=== PATIENT | male | born 1940 | race Caucasian/White ===

== ENCOUNTER → 2024-02-21 08:55 | Outpatient (REF) | payer MEDICARE, SELFPAY | LOC: RAD 08:55 | PROVIDERS: ATTENDING PHYSICIAN Surgery Vascular Surgery; FAMILY PHYSICIAN Family Medicine | DX: I65.23 Occlusion and stenosis of bilateral carotid arteries (principal) | CPT/HCPCS: 93880 ==

== ENCOUNTER → 2024-09-14 08:18 | Outpatient (REF) | payer MEDICARE, SELFPAY | LOC: DHVS 08:18 | PROVIDERS: ATTENDING PHYSICIAN Surgery Vascular Surgery; FAMILY PHYSICIAN Family Medicine; REFERRING PHYSICIAN Internal Medicine Interventional Cardiology | DX: I65.23 Occlusion and stenosis of bilateral carotid arteries (principal) | CPT/HCPCS: 93880 ==

== ENCOUNTER → 2025-02-22 09:20 | Outpatient (REF) | payer MEDICARE, SELFPAY | LOC: DHVS 09:20 | PROVIDERS: ATTENDING PHYSICIAN Registered Nurse; FAMILY PHYSICIAN Family Medicine | DX: I65.23 Occlusion and stenosis of bilateral carotid arteries (principal) | CPT/HCPCS: 93880 ==

== ENCOUNTER → 2025-08-19 08:52 | Outpatient (REF) | payer MEDICARE, SELFPAY | LOC: RAD 08:52 | PROVIDERS: ATTENDING PHYSICIAN Registered Nurse; FAMILY PHYSICIAN Family Medicine | DX: I65.23 Occlusion and stenosis of bilateral carotid arteries (principal) | CPT/HCPCS: 93880 ==

== ENCOUNTER 2025-09-08 11:07 | Emergency (ER) | payer MEDICARE, SELFPAY ==
[2025-09-08 11:13] VITALS: BP 165/58
--- NOTE | 2025-09-08 12:12 | ED.GENMED ---
History of Present Illness
General
Chief Complaint: Throat Problem
Source: patient
Exam Limitations: none
Time Seen by Provider: 09/08/25 12:08
Nursing documentation reviewed up to this point in time: agreed with
History of Present Illness
History of Present Illness:
Patient is an 84-year-old male past with a history of reflux hypertension hyperlipidemia diabetes carotid enterectomy presents to the ER for evaluation of left-sided neck pain. Patient was in bed last night and rolled and feltpain in his left neck.
Patient has had progressively worsening left-sided neck pain since. he has not taken any for pain. He denies any associated chest pain shortness of breath. Denies any headache visual disturbances . Denies any radiation of pain. Denies any
numbness tingling weakness in extremities. No other recent trauma.
Past History
Past History
ED Past Medical History: GERD and NIDDM
ED Past Surgical History: Orthopedic
Social History
Tobacco: Former smoker
Alcohol: Occasional
Drug: None
Personal:
Living: with family
Phy Exam
General Physical Exam
General Presentation: no apparent distress
General age: appears stated age
General Skin: warm and dry
General Habitus: normal
General Mental: alert
General Hydration: appears well hydrated
Cardiovascular Exam
Cardiovascular Exam: regular rate/rhythm, no murmur and normal peripheral pulses
Pulmonary Exam
Pulmonary Exam: lungs clear and no respiratory distress
Neurological Exam
Neurological Exam: alert and oriented x3
Musculoskeletal Exam
Musculoskeletal Exam: other (point tender to left lateral neck region ; pain with ROM ; nml distal strength b/l intact sensation distally )
Skin Exam
Skin Exam: normal color and warm/dry
Psychiatric Exam
Psychiatric Exam: normal mood/affect
Course
Orders/Labs/Results
Orders:
Orders
09/08/25 11:08
EKG [Electrocardiogram (*1)] Urgent
Reason for Study: Chest Pain
EKG- Treatment ONCE
09/08/25 12:34
Acetaminophen [Tylenol] 1,000 mg PO NOW STA
Lidocaine [Lidocaine 4% Patch] 1 patch TOPICAL NOW STA
Apply Lidocaine patch(s) to:: left neck
diazePAM [Valium Injection] 5 mg IM NOW STA
Vital Signs
Initial and Last Documented VS:
Initial Vital Signs
Temp Pulse Resp BP Pulse Ox
97.3 F 97 16 165/58 97
09/08/25 11:13 09/08/25 11:13 09/08/25 11:13 09/08/25 11:13 09/08/25 11:13
Last Documented Vital Signs
Temp Pulse Resp BP Pulse Ox
97.3 F 97 16 165/58 97
09/08/25 11:13 09/08/25 11:13 09/08/25 11:13 09/08/25 11:13 09/08/25 12:12
MDM/Problems Addressed
Differential Diagnosis Includes:
Not limited to muscle sprain strain, torticollis
MDM/Problems Addressed:
Symptoms are consistent with torticollis. No concerning symptoms patient has no other complaints. Patient received a small dose of Valium here with Tylenol and lidocaine patch feeling much better. Will DC home with Tylenol warm compresses
discussion with family we will hold off on Valium at this time as patient is 84 years old and it is very sedating .hopefully with the relief he had here he will continue to do well with heat and Tylenol and lidocaine patch. Discussed close
outpatient follow-up family physician may need outpatient physical therapy.
*Pulse Oximetry
SaO2: 97
Oxygen Mode of Delivery: Room air
Patient hypoxic: no
*Critical Care Note
Total Time (30-74mins, 75-104mins- exclusive of procedures): Not Applicable
ED Attending Note
-
Portions of this chart may have been created with voice recognition software.� Occasional wrong word or��sound alike� substitutions may have occurred due to the inherent limitations of voice recognition software.
Discharge Plan
Departure
Patient Disposition: Home (Routine Discharge)
Date of Disposition: 09/08/25
Time of Disposition: 14:27
Patient with high blood pressure during this ER visit?: Yes
Condition: Fair
Covid-19: Not Applicable
Discharge Problem:
Acute torticollis
Instructions: Torticollis (DC), BLOOD PRESSURE
Prescriptions:
New
lidocaine 5 % adhesive patch,medicated
1 patch topical DAILY Qty: 15 0RF
No Action
metformin 500 mg Tablet
1,000 mg PO BID
pioglitazone 45 mg Tablet
45 mg PO DAILY
clopidogrel 75 mg Tablet
75 mg PO MOWEFR
simvastatin 40 mg Tablet
40 mg PO QPM
glimepiride 4 mg Tablet
8 mg PO DAILY
aspirin 81 mg Tablet,Chewable
81 mg PO DAILY
lisinopril 10 mg Tablet
10 mg PO DAILY Qty: 60 0RF
amlodipine 5 mg Tablet
5 mg PO BID Qty: 60 0RF
ondansetron 4 mg tablet,disintegrating
4 mg PO Q8H PRN (Reason: nausea and vomiting) Qty: 4 0RF
Referrals:
Abhinav Sosa MD [Family Provider, Family Practice]
Activity Restrictions/Additional Instructions:
As discussed : Warm moist compresses to neck several times a day. Tylenol every 6 hours. You may apply lidocaine patch to the area remove after 12 hours. Follow-up with family doctor the next several days.
return if any worsening of symptoms.
Interventions
Interventions:
*Risk Screen - Suicide Last Done: 09/08/25 11:13
*General Assessment Last Done: 09/08/25 15:55
*Neglect/Abuse Screening Last Done: 09/08/25 11:13
*ED- Fall Risk Assessment Last Done: 09/08/25 15:57
*Nursing Disposition Last Done: 09/08/25 15:55
ED- Cardiac Assessment Last Done: 09/08/25 12:24
ED- Pulmonary Assessment Last Done: 09/08/25 12:24
Discharge Date and Time
Discharge Date/Time: 09/08/25 15:56
Print Language: FRISIAN
[2025-09-08] MEDS: LIDOCAINE 4% PATCH 1 PATCH TOPICAL (12:45)
[2025-09-08] MEDS: TYLENOL 1000 MG PO (12:45)
[2025-09-08] MEDS: VALIUM INJECTION 5 MG IM (12:45)
== END 2025-09-08 15:56 | disposition home or self-care (01) ==
LOC: EMR 11:07
PROVIDERS: EMERGENCY PHYSICIAN Emergency Medicine; FAMILY PHYSICIAN Family Medicine
DX: M43.6 Torticollis (principal); E11.9 Type 2 diabetes mellitus without complications; I10 Essential (primary) hypertension; E78.5 Hyperlipidemia, unspecified; K21.9 Gastro-esophageal reflux disease without esophagitis; Z79.84 Long term (current) use of oral hypoglycemic drugs; Z79.02 Long term (current) use of antithrombotics/antiplatelets; Z79.82 Long term (current) use of aspirin; Z87.891 Personal history of nicotine dependence
CPT/HCPCS: 99284; 96372; 93005